=== PATIENT | female | born 1990 | race Caucasian/White ===

== ENCOUNTER 2020-12-04 02:27 | Inpatient (IN) | payer OTHER ==
[~2020-12-04] VITALS: Ht 154.9 cm; Wt 81.6 kg
[2020-12-04 03:50] LABS: HEMOGLOBIN 10.9 gm/dl (12.3-15.3); RED BLOOD COUNT 3.69 M/UL (4.00-5.10)
[2020-12-04] MEDS ORDERED: PRENATAL TAB (06:11)
[2020-12-04] MEDS ORDERED: PERCOCET 5/325 T1 EA PO (16:43)
[2020-12-04] MEDS ORDERED: IBUPROFEN800 MG PO (16:43)
[2020-12-04] MEDS ORDERED: COLACE100 MG PO (16:43)
[2020-12-05 06:04] LABS: HEMOGLOBIN 8.5 gm/dl (12.3-15.3)
== END 2020-12-05 17:21 | disposition home or self-care (01) | DRG 788 ==
LOC: GENOP 02:27 → OB 03:20
PROVIDERS: ADMIT Obstetrics & Gynecology
PROC: 10D00Z1 Extraction of Products of Conception, Low, Open Approach (ICD-10-PCS; 2020-12-04)
PROC: 4A1HX4Z Monitoring of Products of Conception, Cardiac Electrical Activity, External Approach (ICD-10-PCS; principal; 2020-12-04 15:35)
DX: O32.4XX0 Maternal care for high head at term, not applicable or unspecified (principal); Z3A.37 37 weeks gestation of pregnancy; Z37.0 Single live birth; Z20.822 Contact with and (suspected) exposure to COVID-19
CPT/HCPCS: 36415; 81001; 83518; 85014; 85018; 85025; 90471; 90472; 90707; 90715; C9113; J0690; J1885; J2001; J2274; J2300; J2405; J2590; J2795; J3010; J7120; U0002

== ENCOUNTER 2020-12-09 10:48 | Emergency (ER) | payer OTHER ==
[~2020-12-09 10:48] MED LIST: COLACE100 MG PO; IBUPROFEN800 MG PO; PERCOCET 5/325 T1 EA PO; PRENATAL TAB
[2020-12-09 11:46] LABS: HEMOGLOBIN 8.5 gm/dl (12.3-15.3); RED BLOOD COUNT 2.92 M/UL (4.00-5.10); WHITE BLOOD COUNT 9.1 K/UL (4.5-11.0)
[2020-12-09 11:48] LABS: BUN/CREATININE RATIO 18 (0-10)
== END 2020-12-09 14:20 | disposition home or self-care (01) ==
LOC: ER1 10:48
PROVIDERS: Emergency Medicine
DX: O89.4 Spinal and epidural anesthesia-induced headache during the puerperium (principal); O90.81 Anemia of the puerperium; O99.285 Endocrine, nutritional and metabolic diseases complicating the puerperium; E87.6 Hypokalemia
CPT/HCPCS: 80053; 85025; 85610; 85730; 99284